=== PATIENT | male | born 1965 | race Two or more races ===

== ENCOUNTER 2021-04-22 07:12 | Outpatient (CLI) | payer OTHER ==
[2021-05-09] MEDS ORDERED: METFORMIN HCL1000 M2 PO (09:15)
[2021-05-09] MEDS ORDERED: INVOKANA100 MG PO (09:16)
[2021-05-09] MEDS ORDERED: GLIMEPIRIDE2 MG (09:16)
[2021-05-09] MEDS ORDERED: ADULT LOW DOSE81 M1 PO (09:16)
[2021-05-09] MEDS ORDERED: LOSARTAN-HCTZ1 EAC2 PO (09:17)
[2021-05-09] MEDS ORDERED: ATORVASTATIN CA10 MG PO (09:17)
== END 2021-04-22 07:24 | disposition home or self-care (01) ==
LOC: LAB 07:12
PROVIDERS: ATTEND Surgery Surgery of the Hand
DX: Z01.812 Encounter for preprocedural laboratory examination (principal); D68.9 Coagulation defect, unspecified; Z01.818 Encounter for other preprocedural examination

== ENCOUNTER 2021-04-22 08:04 | Outpatient (CLI) | payer OTHER ==
[2021-05-09] MEDS ORDERED: METFORMIN HCL1000 M2 PO (09:15)
[2021-05-09] MEDS ORDERED: INVOKANA100 MG PO (09:16)
[2021-05-09] MEDS ORDERED: ADULT LOW DOSE81 M1 PO (09:16)
[2021-05-09] MEDS ORDERED: GLIMEPIRIDE2 MG (09:16)
[2021-05-09] MEDS ORDERED: ATORVASTATIN CA10 MG PO (09:17)
[2021-05-09] MEDS ORDERED: LOSARTAN-HCTZ1 EAC2 PO (09:17)
== END 2021-04-22 08:36 | disposition home or self-care (01) ==
LOC: RAD 08:04
PROVIDERS: ATTEND Surgery Surgery of the Hand
DX: M15.0 Primary generalized (osteo)arthritis (principal)

== ENCOUNTER 2021-05-11 06:17 | Day surgery (SDC) | payer OTHER ==
[~2021-05-11 06:17] MED LIST: ADULT LOW DOSE81 M1 PO; ATORVASTATIN CA10 MG PO; GLIMEPIRIDE2 MG; INVOKANA100 MG PO; LOSARTAN-HCTZ1 EAC2 PO; METFORMIN HCL1000 M2 PO
== END 2021-05-11 11:45 | disposition home or self-care (01) ==
LOC: CIR.AMB 06:17
PROVIDERS: ATTEND Surgery Surgery of the Hand
DX: D21.22 Benign neoplasm of connective and other soft tissue of left lower limb, including hip (principal); Z20.822 Contact with and (suspected) exposure to COVID-19

== ENCOUNTER 2021-06-01 06:27 | Day surgery (SDC) | payer OTHER | END 2021-06-01 14:15 | disposition home or self-care (01) | LOC: CIR.AMB 06:27 | PROVIDERS: ATTEND Surgery Surgery of the Hand | DX: D21.21 Benign neoplasm of connective and other soft tissue of right lower limb, including hip (principal); Z20.822 Contact with and (suspected) exposure to COVID-19 ==